=== PATIENT | female | born 1960 | race Caucasian/White ===

== ENCOUNTER 2020-06-14 02:20 | Emergency (ER) | payer SELFPAY ==
[~2020-06-14] VITALS: Ht 162.6 cm; Wt 65.8 kg
--- NOTE | 2020-06-14 02:20 | NUR ---
0217 - BIBA ALS TO ER BED # 4 - ASYSTOLE RHYTHM. COMPRESSIONS STARTED IMMEDIATELY UPON ARRIVAL.
--- NOTE | 2020-06-14 02:20 | NUR ---
59 Y/O FEMALE SAY ALS FROM HOME IN CARDIAC ARREST; PT ARRIVED ASYSTOLE ON MONITOR. RESUSCITATION CONTINUED PER FIRE PT FOUND DOWN BY . STARTED CPR 10 MINS PRIOR TO EMS ARRIVAL. WHILE ON SCENE PT RECEIVED 6 ROUNDS OF EPI AND 1 BICARB. AT 6TH ROUND OF EPI PT CONVERTED TO V-FIB AND WAS SHOCKED ONCE. PT REVERTED TO ASYSTOLE.
--- NOTE | 2020-06-14 02:21 | NUR ---
REFER TO CODE BLUE SHEET FOR FURTHER INFORMATION
--- NOTE | 2020-06-14 02:25 | NUR ---
TIME OF CALLED AT 0225 BY VANDA LISA
--- NOTE | 2020-06-14 02:47 | NUR ---
PHONED LITHOGRAPHIC STRIPPER AT [phone] AND SPOKE TO FRANSICO (DISPATCHER FOR PLATE FURNACE OPERATOR'S DEPTARTMENT) AND SHE STATED SHE WILL HAVE LITHOGRAPHIC STRIPPER'S OFFICE CALL US BACK
--- NOTE | 2020-06-14 02:51 | NUR ---
SHIV SALDANA (FRAME RUNNER) FROM [facility] OFFICE PHONED BACK AND STATED HE ONLY HAS [facility] ON TONIGHT AND THAT IT WILL BE A LONG WAIT UNTIL THEY CAN PROCEED FORWARD.
--- NOTE | 2020-06-14 02:57 | NUR ---
PHONED [facility] @ [phone] AND SPOKE TO AMAYA OLSON (FAMILY MAGNETIC HEALER) AND SHE STATED SHE WILL FOLLOW UP WITH [facility] ER IN ABOUT AN HOUR FOR AN UPDATE AND THAT PT IS ELIGIBLE FOR DONATION AND THAT [facility] WILL REACH OUT TO FAMILY REGARDING DONATION. REFERENCE # [id number]
--- NOTE | 2020-06-14 03:08 | NUR ---
SPOKE TO PT (BRENDA FLEMING) AND ASKED HIM TO COME TO THE EMERGENCY ROOM URGENTLY. PT FAMILY MEMBER IS IRISH SPEAKING AND CONTACT INFO IS [phone].
--- NOTE | 2020-06-14 04:00 | NUR ---
PT'S ARRIVED AND SPOKE WITH HIM IN TRIAGE ROOM , INFORMING HIM PT HAD .
--- NOTE | 2020-06-14 04:40 | NUR ---
DORETHA FROM [facility] PHONED BACK FOR UPDATE
--- NOTE | 2020-06-14 05:10 | NUR ---
PHONED MANAGER TECHNICAL SALES AT [phone] AND SPOKE TO MARKY (DISPATCHER FOR ASSEMBLY ROOM SUPERVISOR'S DEPTARTMENT) AND SHE STATED THE PT IS NOW SECOND IN LINE ON THE MANAGER TECHNICAL SALES'S REPORT AND THERE WILL BE AN EXTENDED WAIT TIME AND SHE DOES NOT HAVE AN ETA TO WHEN A MANAGER TECHNICAL SALES WILL BE REACHING OUT TO [facility] ER TO PROCEED FORWARD
--- NOTE | 2020-06-14 05:45 | NUR ---
CALLED BACK PT FOR UPDATE ON MORTUARY SLECTION. PT STILL DOESNT KNOW WHICH MORTUARY TO CHOOSE. PT SAID HE'LL CALL BACK WITH AN UPDATE.
--- NOTE | 2020-06-14 06:14 | NUR ---
S/W BHAVESH FROM [facility] REQUESTING UPDATE, INFORMATION PROVIDED.
--- NOTE | 2020-06-14 07:08 | NUR ---
STAN CRESPO (DEPARTMENTAL SECRETARY) CALLED FOR UPDATE
--- NOTE | 2020-06-14 07:08 | NUR ---
STAN CRESPO (ADMINISTRATIVE MANAGER) STATED HER TRANSPORTER'S ETA IS 1 - 1.5 HRS TO CLOTH BOIL OFF MACHINE OPERATOR THE BODY AND FULL COPY OF THE CHART
--- NOTE | 2020-06-14 07:08 | NUR ---
APPLICATION CHEMIST'S CASE # [id number]
--- NOTE | 2020-06-14 07:23 | NUR ---
Pt report given to BHARGAVI BREWSTER. Transfer of care at this time.
--- NOTE | 2020-06-14 08:50 | NUR ---
BORING MACHINE SET UP OPERATOR JIG RAMONA PICKED UP BODY AT THIS TIME. RECORD OF SIGNED.
== END 2020-06-14 02:25 | disposition expired ==
LOC: MED 02:20
DX: I46.9 Cardiac arrest, cause unspecified (principal); I10 Essential (primary) hypertension
CPT/HCPCS: 92950; 99285